=== PATIENT | male | born 1990 | race Caucasian/White ===

== ENCOUNTER 2016-12-19 17:06 | Emergency (ER) | payer OTHER ==
[2016-12-19 17:21] VITALS: BP 136/69; PULSE 71; TEMP 98.3; BMI 28.0
[2016-12-19] MEDS ORDERED: ALBUTEROL SO4 0.083% IH SOL 2.5 MG/3 ML VIAL.NEB. NEB ONE ×2 (19:48→20:01)
[2016-12-19 20:27] LABS: MCH 27.5 pg (25.7-33.7); MCHC 32.6 g/dl (32.0-35.9); MEAN CELL VOLUME 84.3 fl (80-96); MEAN PLT VOLUME 8.7 fl (7.5-11.1); PLATELET COUNT 313 K/MM3 (134-434); RDW 12.3 % (11.9-15.9); WHITE BLOOD COUNT 13.4 K/mm3 (4.0-10.0)
[2016-12-19 20:37] LABS: INR 1.04 (0.82-1.09); PROTHROMBIN TIME (PATIENT) 11.5 SEC (9.98-11.88)
[2016-12-19 20:39] LABS: ACTIVATED PTT 42.5 SECONDS (26.9-34.4)
[2016-12-19 21:03] LABS: ANION GAP 6 (8-16); CALCIUM 9.4 mg/dL (8.5-10.1); CO2 30 mmol/L (21-32); GLUCOSE,RANDOM 86 mg/dL (74-106)
[2016-12-19 21:05] LABS: TROPONIN I < 0.02 ng/ml (0.00-0.05)
[2016-12-19] MEDS ORDERED: IBUPROFEN 600 MG TABLET (FP) PO ONE ×2 (21:13→21:23)
--- NOTE | 2016-12-19 21:36 | PDOC ---
History of Present Illness - General Chief Complaint: Chest Pain Stated Complaint: CHEST PAIN Time Seen by Provider: 12/19/16 19:46 History Source: Patient Exam Limitations: No Limitations - History of Present Illness Initial Comments: 12/19/16 21:31 ccPAIN LEFT SIDE OF CHEST X 1 DAY; INCREASES WITH MOVEMENT; Timing/Duration: reports: yesterday Severity: reports: mild Possible Cause: Yes: no prior episodes. No: illness exposure, irritant gases exposure, smoke exposure Associated Symptoms: reports: chest pain/soreness. denies: cough, dizziness, fever/chills, headache, lightheadedness, nasal drainage, wheezing Past History - Past Medical History Allergies/Adverse Reactions: Allergies Allergy/AdvReac Type Severity Reaction Status Date / Time No Known Allergies Allergy Verified 12/19/16 17:18 Home Medications: Ambulatory Orders Ibuprofen 600 mg PO Q6H PRN #20 tablet 05/26/16 Sulfamethoxazole/Trimethoprim [Bactrim Ds -] 1 tab PO BID #10 tablet 05/26/16 Other medical history: DENIES. - Psycho/Social/Smoking Cessation Hx Suicidal Ideation: No Smoking History: Never smoked Hx Alcohol Use: No Drug/Substance Use Hx: No Review of Systems - Review of Systems Constitutional: No: Chills, Fever, Malaise HEENTM: No: Nose Pain, Nose Congestion, Hearing Loss, Difficulty Swallowing Respiratory: No: Symptoms reported, Cough, Shortness of Breath, SOB with Exertion, SOB at Rest, Stridor, Wheezing, Productive cough, Hemoptysis Cardiac (ROS): Yes: Chest Pain. No: Lightheadedness, Palpitations, Chest Tightness ABD/GI: No: Symptoms Reported Musculoskeletal: Yes: Muscle Pain. No: Joint Pain, Joint Swelling, Muscle Weakness, Neck Pain Integumentary: No: Symptoms Reported, Rash Neurological: No: Symptoms reported, Numbness, Paresthesia *Physical Exam - Vital Signs Last Vital Signs Temp Pulse Resp BP Pulse Ox 98.3 F 71 19 136/69 98 12/19/16 17:18 12/19/16 17:18 12/19/16 17:18 12/19/16 17:18 12/19/16 17:18 - Physical Exam General Appearance: Yes: Appropriately Dressed. No: Apparent Distress HEENT: positive: TMs Normal, Pharynx Normal Neck: negative: Tender, Rigid, Supple, Lymphadenopathy (R), Lymphadenopathy (L) Respiratory/Chest: positive: Lungs Clear, Normal Breath Sounds. negative: Decreased Breath Sounds, Rhonchi, Stridor, Wheezing, Plerual Rub Cardiovascular: positive: Other (NO PALP TENDERNES; PAIN INCREASES WITH SEVERE LATERAL STRETCH). negative: Regular Rhythm, Regular Rate, Murmur ED Treatment Course - LABORATORY CBC & Chemistry Diagram: 12/19/16 20:10 12/19/16 20:10 - ADDITIONAL ORDERS Additional order review: Laboratory Results 12/19/16 12/19/16 20:10 20:10 INR 1.04 PTT (Actin FS) 42.5 H Sodium 139 Potassium 4.3 Chloride 103 Carbon Dioxide 30 Anion Gap 6 L BUN 14 Creatinine 1.0 Random Glucose 86 Calcium 9.4 Creatine Kinase 132 Troponin I < 0.02 12/19/16 20:10 RBC 5.43 MCV 84.3 MCHC 32.6 RDW 12.3 MPV 8.7 - RADIOLOGY Radiology Studies Ordered: Category Date Time Status CHEST PA & LAT [RAD] Stat Radiology 12/19/16 19:47 Taken - Medications Given in the ED: ED Medications Discontinued Medications Generic Name Dose Route Start Last Admin Trade Name Freq PRN Reason Stop Dose Admin Albuterol Sulfate 1 amp 12/19/16 19:48 12/19/16 20:33 Ventolin 0.083% Nebulizer Soln - NEB 12/19/16 19:49 1 amp ONCE ONE Administration Ibuprofen 600 mg 12/19/16 21:23 12/19/16 21:25 Motrin - PO 12/19/16 21:24 600 mg ONCE ONE Administration Medical Decision Making - Medical Decision Making 12/19/16 21:33 EKG,CHESTXRAY APPEAR NL; CARDIAC MAKERS =WNLWITH PAIN >6 HOURS; PAIN SLIGHT BATTER POST MOTRIN IN ED; WILL SENT HOME WITH MOTRIN AND CLOSE FOLLOW UP WITH LOCAL MD THIS WEEK *DC/Admit/Observation/Transfer Diagnosis at time of Disposition: Chest pain Qualifiers: Chest pain type: unspecified Qualified Code(s): R07.9 - Chest pain, unspecified - Discharge Dispostion Disposition: HOME Condition at time of disposition: Stable Admit: No - Patient Instructions Additional Instructions: PLEASE SEE LOCAL MD THIS WEEK; RETURN FOR INCREASED SYMPTOMS; ADVIL 400MG 3 TIMES DAILY X 4-5 DAYS
--- NOTE | 2016-12-20 12:04 | EKG ---
Test Reason : Blood Pressure : / mmHG Vent. Rate : 065 BPM Atrial Rate : 065 BPM P-R Int : 118 ms QRS Dur : 084 ms QT Int : 382 ms P-R-T Axes : 033 076 050 degrees QTc Int : 397 ms NORMAL SINUS RHYTHM NORMAL ECG NO PREVIOUS ECGS AVAILABLE Confirmed by BERHANE GUTIERREZ MD ([id number]) on 12/20/2016 12:04:00 PM Referred By: Confirmed By:BERHANE GUTIERREZ MD
== END 2016-12-19 21:53 | disposition home or self-care (01) ==
LOC: JERFT 17:06
PROC: 3E0F7GC Introduction of Other Therapeutic Substance into Respiratory Tract, Via Natural or Artificial Opening (ICD-10-PCS; principal; 2016-12-19)
DX: R07.89 Other chest pain (principal)
CPT/HCPCS: 36415; 71020-TC; 80048; 82550; 84484; 85027; 85610; 85730; 93005; 93010; 94640; 99281-25